=== PATIENT | female | born 1960 | race Caucasian/White ===

== ENCOUNTER 2022-02-07 07:55 | Inpatient (IN) | payer MEDICARE, OTHER ==
[2022-02-07] MEDS ORDERED: Prochlorperazine 5 MG Tab PO PRN (11:12)
[2022-02-07] MEDS ORDERED: Ondansetron 4 MG Tab.DIS PO PRN (11:12)
[2022-02-07] MEDS ORDERED: Fluticasone NASAL Spray 16 GM Bottle NASBOTH PRN (11:12)
[2022-02-07] MEDS ORDERED: Albuterol 8 GM Inhaler INH PRN (11:12)
[2022-02-07] MEDS ORDERED: Cyanocobalamin (Vitamin B12) 1,000 MCG/ML SDV IM SCH (11:15)
[2022-02-07] MEDS: Metoclopramide 10 MG Tab PO SCH ×2 (13:36→16:57)
[2022-02-07] MEDS ORDERED: GABAPENTIN 250 MG/5 ML PO SCH (14:00)
[2022-02-07] MEDS: oxyCODONE 5 MG Tab PO PRN ×2 (15:07→20:12)
[2022-02-07] MEDS ORDERED: IPRATROPIUM NASBOTH PRN (17:14)
[2022-02-07] MEDS ORDERED: Albuterol 0.083% 2.5 MG/3 ML Neb Soln INH PRN (17:21)
[2022-02-07] MEDS ORDERED: Albuterol/Ipratropium 3.0-0.5 MG/3 ML Neb Soln INH PRN (17:22)
[2022-02-07] MEDS: Pantoprazole 20 MG Tab, Delayed Release PO SCH (18:14)
[2022-02-07] MEDS: Acetaminophen 325 MG Tab PO PRN (19:23)
[2022-02-07] MEDS ORDERED: Potassium Chloride 10 MEQ Tab.ER PO SCH (21:00)
[2022-02-07] MEDS: Calcium Carbonate 500 MG Tab.Chew PO SCH (22:03)
[2022-02-07] MEDS: Amitriptyline 25 MG Tab PO SCH (22:03)
[2022-02-07] MEDS: Carvedilol 6.25 MG Tab PO SCH (22:05)
[2022-02-07] MEDS: Potassium Chloride 10 MEQ Tab.ER PO SCH (22:05)
[2022-02-07] MEDS: Formoterol/Mometasone 200-5 MCG 8.8 GM Inhaler IH SCH (22:06)
[2022-02-07] MEDS: GABAPENTIN 250 MG/5 ML PO SCH (22:07)
[2022-02-08] MEDS: oxyCODONE 5 MG Tab PO PRN ×5 (00:11→22:22)
[2022-02-08] MEDS: Pantoprazole 20 MG Tab, Delayed Release PO SCH ×3 (05:59→17:13)
[2022-02-08] MEDS ORDERED: Pantoprazole 40 MG Tab.CR PO SCH (07:30)
[2022-02-08] MEDS: Calcium Carbonate 500 MG Tab.Chew PO SCH (08:37)
[2022-02-08] MEDS: GABAPENTIN 250 MG/5 ML PO SCH ×2 (08:51→22:14)
[2022-02-08] MEDS: Formoterol/Mometasone 200-5 MCG 8.8 GM Inhaler IH SCH ×2 (08:51→22:25)
[2022-02-08] MEDS: Potassium Chloride 10 MEQ Tab.ER PO SCH ×2 (08:52→22:16)
[2022-02-08] MEDS: Carvedilol 6.25 MG Tab PO SCH ×2 (08:52→22:14)
[2022-02-08] MEDS: Polyethylene Glycol 3350 Powder 17 GM Packet PO SCH (08:53)
[2022-02-08] MEDS: Multivitamins with Minerals/Iron/Folic Acid/Lycopene Tab PO SCH (08:53)
[2022-02-08] MEDS ORDERED: BIOTIN 10 MG PO SCH (09:00)
[2022-02-08] MEDS ORDERED: Polyethylene Glycol 3350 Powder 17 GM Packet PO SCH (09:00)
[2022-02-08] MEDS ORDERED: Calcium Carbonate 600 MG Tab PO SCH (09:00)
[2022-02-08] MEDS: Acetaminophen 325 MG Tab PO PRN (16:15)
[2022-02-08] MEDS ORDERED: OMEPRAZOLE 40 MG PO SCH (17:30)
[2022-02-08] MEDS ORDERED: FLUTICASONE NASBOTH PRN (18:19)
[2022-02-08] MEDS: CALCIUM CARBONATE PO SCH (18:42)
[2022-02-08] MEDS: Amitriptyline 25 MG Tab PO SCH (22:16)
[2022-02-09] MEDS: oxyCODONE 5 MG Tab PO PRN ×4 (03:54→20:40)
[2022-02-09] MEDS: Pantoprazole 40 MG Tab.CR PO SCH ×2 (06:29→17:32)
[2022-02-09] MEDS: Formoterol/Mometasone 200-5 MCG 8.8 GM Inhaler IH SCH ×2 (08:25→20:40)
[2022-02-09] MEDS: Carvedilol 6.25 MG Tab PO SCH ×2 (08:26→20:39)
[2022-02-09] MEDS: Potassium Chloride 10 MEQ Tab.ER PO SCH ×2 (08:26→20:40)
[2022-02-09] MEDS: Polyethylene Glycol 3350 Powder 17 GM Packet PO SCH (08:26)
[2022-02-09] MEDS: Multivitamins with Minerals/Iron/Folic Acid/Lycopene Tab PO SCH (08:26)
[2022-02-09] MEDS: GABAPENTIN 250 MG/5 ML PO SCH ×2 (08:27→20:46)
[2022-02-09] MEDS: CALCIUM CARBONATE PO SCH ×2 (08:27→18:05)
[2022-02-09] MEDS ORDERED: CALCIUM CARBONATE PO SCH (12:00)
[2022-02-09] MEDS: Amitriptyline 25 MG Tab PO SCH (20:42)
[2022-02-10] MEDS: oxyCODONE 5 MG Tab PO PRN ×4 (02:28→21:28)
[2022-02-10] MEDS: Pantoprazole 40 MG Tab.CR PO SCH ×3 (06:10→17:09)
[2022-02-10] MEDS: CALCIUM CARBONATE PO SCH ×2 (09:39→18:13)
[2022-02-10] MEDS: GABAPENTIN 250 MG/5 ML PO SCH ×2 (09:39→20:18)
[2022-02-10] MEDS: Formoterol/Mometasone 200-5 MCG 8.8 GM Inhaler IH SCH ×2 (09:39→20:14)
[2022-02-10] MEDS: Potassium Chloride 10 MEQ Tab.ER PO SCH ×2 (09:40→20:13)
[2022-02-10] MEDS: Polyethylene Glycol 3350 Powder 17 GM Packet PO SCH (09:40)
[2022-02-10] MEDS: Multivitamins with Minerals/Iron/Folic Acid/Lycopene Tab PO SCH (09:40)
[2022-02-10] MEDS: Carvedilol 6.25 MG Tab PO SCH ×2 (09:44→20:35)
[2022-02-10] MEDS: Acetaminophen 500 MG Tab PO SCH ×3 (10:12→20:35)
[2022-02-10] MEDS ORDERED: oxyCODONE 5 MG Tab PO PRN (19:58)
[2022-02-10] MEDS: Amitriptyline 25 MG Tab PO SCH (20:14)
[2022-02-11] MEDS: Melatonin 3 MG Tab PO PRN ×2 (00:44→23:24)
[2022-02-11] MEDS: Pantoprazole 40 MG Tab.CR PO SCH ×3 (05:16→17:50)
[2022-02-11] MEDS: oxyCODONE 5 MG Tab PO PRN ×5 (05:16→23:25)
[2022-02-11] MEDS: Potassium Chloride 10 MEQ Tab.ER PO SCH ×2 (09:35→22:00)
[2022-02-11] MEDS: Acetaminophen 500 MG Tab PO SCH ×3 (09:36→21:58)
[2022-02-11] MEDS: Multivitamins with Minerals/Iron/Folic Acid/Lycopene Tab PO SCH (09:36)
[2022-02-11] MEDS: Formoterol/Mometasone 200-5 MCG 8.8 GM Inhaler IH SCH ×2 (09:45→22:01)
[2022-02-11] MEDS: Ergocalciferol (Vitamin D2) 1.25 MG Cap PO SCH (09:47)
[2022-02-11] MEDS: GABAPENTIN 250 MG/5 ML PO SCH ×2 (10:04→22:01)
[2022-02-11] MEDS: CALCIUM CARBONATE PO SCH ×2 (10:05→19:24)
[2022-02-11] MEDS: Carvedilol 6.25 MG Tab PO SCH ×2 (10:07→21:57)
[2022-02-11] MEDS: Polyethylene Glycol 3350 Powder 17 GM Packet PO SCH (18:51)
[2022-02-11] MEDS: Amitriptyline 25 MG Tab PO SCH (21:59)
[2022-02-12] MEDS: oxyCODONE 5 MG Tab PO PRN ×5 (03:58→23:06)
[2022-02-12] MEDS: Pantoprazole 40 MG Tab.CR PO SCH ×2 (07:40→19:10)
[2022-02-12] MEDS: Polyethylene Glycol 3350 Powder 17 GM Packet PO SCH (08:08)
[2022-02-12] MEDS: Potassium Chloride 10 MEQ Tab.ER PO SCH ×2 (08:08→21:56)
[2022-02-12] MEDS: Acetaminophen 500 MG Tab PO SCH ×3 (08:08→21:49)
[2022-02-12] MEDS: Multivitamins with Minerals/Iron/Folic Acid/Lycopene Tab PO SCH (08:08)
[2022-02-12] MEDS: GABAPENTIN 250 MG/5 ML PO SCH ×2 (08:11→21:56)
[2022-02-12] MEDS: CALCIUM CARBONATE PO SCH ×2 (08:14→19:11)
[2022-02-12] MEDS: Formoterol/Mometasone 200-5 MCG 8.8 GM Inhaler IH SCH ×2 (08:16→21:56)
[2022-02-12] MEDS: Carvedilol 6.25 MG Tab PO SCH ×2 (09:30→22:16)
[2022-02-12] MEDS: Amitriptyline 25 MG Tab PO SCH (21:50)
[2022-02-12] MEDS: Melatonin 3 MG Tab PO PRN (23:05)
[2022-02-13] MEDS: oxyCODONE 5 MG Tab PO PRN ×4 (06:09→22:24)
[2022-02-13] MEDS: Pantoprazole 40 MG Tab.CR PO SCH ×3 (06:09→17:04)
[2022-02-13] MEDS: Formoterol/Mometasone 200-5 MCG 8.8 GM Inhaler IH SCH ×2 (08:32→22:20)
[2022-02-13] MEDS: Acetaminophen 500 MG Tab PO SCH ×3 (08:33→22:22)
[2022-02-13] MEDS: Multivitamins with Minerals/Iron/Folic Acid/Lycopene Tab PO SCH (08:33)
[2022-02-13] MEDS: Carvedilol 6.25 MG Tab PO SCH ×2 (08:34→22:23)
[2022-02-13] MEDS: GABAPENTIN 250 MG/5 ML PO SCH ×2 (08:37→22:26)
[2022-02-13] MEDS: CALCIUM CARBONATE PO SCH ×2 (08:37→22:25)
[2022-02-13] MEDS: Polyethylene Glycol 3350 Powder 17 GM Packet PO SCH (08:44)
[2022-02-13] MEDS: Potassium Chloride 10 MEQ Tab.ER PO SCH ×2 (08:51→22:21)
[2022-02-13] MEDS: Amitriptyline 25 MG Tab PO SCH (22:21)
[2022-02-13] MEDS: Melatonin 3 MG Tab PO PRN (22:24)
[2022-02-14] MEDS: oxyCODONE 5 MG Tab PO PRN ×5 (02:40→21:58)
[2022-02-14] MEDS: Pantoprazole 40 MG Tab.CR PO SCH ×2 (06:37→17:24)
[2022-02-14] MEDS: GABAPENTIN 250 MG/5 ML PO SCH ×2 (08:47→20:03)
[2022-02-14] MEDS: Formoterol/Mometasone 200-5 MCG 8.8 GM Inhaler IH SCH ×2 (08:47→20:03)
[2022-02-14] MEDS: CALCIUM CARBONATE PO SCH ×2 (08:47→18:02)
[2022-02-14] MEDS: Acetaminophen 500 MG Tab PO SCH ×3 (08:48→20:12)
[2022-02-14] MEDS: Polyethylene Glycol 3350 Powder 17 GM Packet PO SCH (08:48)
[2022-02-14] MEDS: Multivitamins with Minerals/Iron/Folic Acid/Lycopene Tab PO SCH (08:48)
[2022-02-14] MEDS: Potassium Chloride 10 MEQ Tab.ER PO SCH ×2 (08:48→20:03)
[2022-02-14] MEDS: Carvedilol 6.25 MG Tab PO SCH (08:56)
[2022-02-14 12:02] LABS: ANION GAP 9.8 mmol/L (5-15)
[2022-02-14] MEDS: Amitriptyline 25 MG Tab PO SCH (20:01)
[2022-02-14] MEDS: Melatonin 3 MG Tab PO PRN (20:01)
[2022-02-15] MEDS: oxyCODONE 5 MG Tab PO PRN ×5 (02:38→22:00)
[2022-02-15] MEDS: Pantoprazole 40 MG Tab.CR PO SCH ×2 (06:36→17:27)
[2022-02-15] MEDS: Multivitamins with Minerals/Iron/Folic Acid/Lycopene Tab PO SCH (09:21)
[2022-02-15] MEDS: Formoterol/Mometasone 200-5 MCG 8.8 GM Inhaler IH SCH ×2 (09:22→20:41)
[2022-02-15] MEDS: Hydrochlorothiazide 12.5 MG Cap PO SCH (09:23)
[2022-02-15] MEDS: Potassium Chloride 10 MEQ Tab.ER PO SCH ×2 (09:23→20:40)
[2022-02-15] MEDS: Acetaminophen 500 MG Tab PO SCH ×3 (09:24→20:40)
[2022-02-15] MEDS: Polyethylene Glycol 3350 Powder 17 GM Packet PO SCH (09:27)
[2022-02-15] MEDS: CALCIUM CARBONATE PO SCH ×2 (09:27→18:09)
[2022-02-15] MEDS: GABAPENTIN 250 MG/5 ML PO SCH ×2 (09:35→20:41)
[2022-02-15] MEDS: Melatonin 3 MG Tab PO PRN (20:40)
[2022-02-15] MEDS: Amitriptyline 25 MG Tab PO SCH (20:40)
[2022-02-16] MEDS: oxyCODONE 5 MG Tab PO PRN ×5 (02:54→21:44)
[2022-02-16] MEDS: Pantoprazole 40 MG Tab.CR PO SCH ×2 (06:44→17:37)
[2022-02-16] MEDS: Formoterol/Mometasone 200-5 MCG 8.8 GM Inhaler IH SCH ×2 (08:07→21:26)
[2022-02-16] MEDS: Polyethylene Glycol 3350 Powder 17 GM Packet PO SCH (08:08)
[2022-02-16] MEDS: CALCIUM CARBONATE PO SCH ×2 (08:08→18:13)
[2022-02-16] MEDS: Hydrochlorothiazide 12.5 MG Cap PO SCH (08:08)
[2022-02-16] MEDS: Potassium Chloride 10 MEQ Tab.ER PO SCH ×2 (08:09→21:25)
[2022-02-16] MEDS: Acetaminophen 500 MG Tab PO SCH ×3 (08:09→21:24)
[2022-02-16] MEDS: Multivitamins with Minerals/Iron/Folic Acid/Lycopene Tab PO SCH (08:09)
[2022-02-16] MEDS: GABAPENTIN 250 MG/5 ML PO SCH ×2 (09:09→21:25)
[2022-02-16] MEDS: Amitriptyline 25 MG Tab PO SCH (21:24)
[2022-02-16] MEDS: Melatonin 3 MG Tab PO PRN (21:25)
[2022-02-17] MEDS: oxyCODONE 5 MG Tab PO PRN ×5 (02:34→22:10)
[2022-02-17] MEDS: Pantoprazole 40 MG Tab.CR PO SCH ×3 (06:23→17:16)
[2022-02-17] MEDS: GABAPENTIN 250 MG/5 ML PO SCH ×2 (08:50→22:12)
[2022-02-17] MEDS: Polyethylene Glycol 3350 Powder 17 GM Packet PO SCH (08:55)
[2022-02-17] MEDS: Multivitamins with Minerals/Iron/Folic Acid/Lycopene Tab PO SCH (08:56)
[2022-02-17] MEDS: Acetaminophen 500 MG Tab PO SCH ×3 (08:56→22:10)
[2022-02-17] MEDS: Hydrochlorothiazide 12.5 MG Cap PO SCH (08:56)
[2022-02-17] MEDS: Formoterol/Mometasone 200-5 MCG 8.8 GM Inhaler IH SCH ×2 (08:56→22:13)
[2022-02-17] MEDS: Potassium Chloride 10 MEQ Tab.ER PO SCH ×2 (08:56→22:09)
[2022-02-17] MEDS: CALCIUM CARBONATE PO SCH ×2 (08:58→18:18)
[2022-02-17] MEDS: Melatonin 3 MG Tab PO PRN (22:09)
[2022-02-17] MEDS: Amitriptyline 25 MG Tab PO SCH (22:10)
[2022-02-18] MEDS: oxyCODONE 5 MG Tab PO PRN ×2 (02:12→06:08)
[2022-02-18] MEDS: Pantoprazole 40 MG Tab.CR PO SCH ×2 (06:05→06:30)
[2022-02-18 08:24] LABS: ANION GAP 9.5 mmol/L (5-15)
[2022-02-18] MEDS: Polyethylene Glycol 3350 Powder 17 GM Packet PO SCH (08:24)
[2022-02-18] MEDS: GABAPENTIN 250 MG/5 ML PO SCH (08:24)
[2022-02-18] MEDS: Formoterol/Mometasone 200-5 MCG 8.8 GM Inhaler IH SCH (08:24)
[2022-02-18] MEDS: CALCIUM CARBONATE PO SCH (08:24)
[2022-02-18] MEDS: Potassium Chloride 10 MEQ Tab.ER PO SCH (08:28)
[2022-02-18] MEDS: Hydrochlorothiazide 12.5 MG Cap PO SCH (08:29)
[2022-02-18] MEDS: Multivitamins with Minerals/Iron/Folic Acid/Lycopene Tab PO SCH (08:29)
[2022-02-18] MEDS: Acetaminophen 500 MG Tab PO SCH (08:29)
[2022-02-18] MEDS: Ergocalciferol (Vitamin D2) 1.25 MG Cap PO SCH (09:22)
== END 2022-02-18 13:10 | disposition home or self-care (01) | DRG 948 ==
LOC: KA.MS 09:36
PROVIDERS: ADMIT Nurse Practitioner Family; ATTEND Family Medicine
DX: R53.81 Other malaise (principal); I82.409 Acute embolism and thrombosis of unspecified deep veins of unspecified lower extremity; E46 Unspecified protein-calorie malnutrition; Z68.41 Body mass index [BMI] 40.0-44.9, adult; M40.35 Flatback syndrome, thoracolumbar region; K59.09 Other constipation; Z20.822 Contact with and (suspected) exposure to COVID-19; E66.9 Obesity, unspecified; M54.9 Dorsalgia, unspecified; K21.9 Gastro-esophageal reflux disease without esophagitis; E53.8 Deficiency of other specified B group vitamins; G89.29 Other chronic pain; N32.81 Overactive bladder; K29.50 Unspecified chronic gastritis without bleeding; G62.9 Polyneuropathy, unspecified; G47.00 Insomnia, unspecified; J31.0 Chronic rhinitis; M85.80 Other specified disorders of bone density and structure, unspecified site; E87.6 Hypokalemia; D50.9 Iron deficiency anemia, unspecified; K59.03 Drug induced constipation; T40.2X5A Adverse effect of other opioids, initial encounter; R29.6 Repeated falls; M54.2 Cervicalgia; J45.40 Moderate persistent asthma, uncomplicated; N95.2 Postmenopausal atrophic vaginitis; Z91.013 Allergy to seafood; Z88.8 Allergy status to other drugs, medicaments and biological substances; Z91.041 Radiographic dye allergy status; Z86.718 Personal history of other venous thrombosis and embolism; Z79.01 Long term (current) use of anticoagulants
CPT/HCPCS: 36415; 72070; 72100; 80053; 85025; 87070; 87075; 87205; 97110-GO; 97110-GP; 97116-GP; 97161-GP; 97530-GP; 97535-GO; A9270-GY; J1642; J1652; U0002

== ENCOUNTER 2022-03-04 18:30 | Emergency (ER) | payer MEDICARE, OTHER ==
[2022-03-04] MEDS ORDERED: Lidocaine 1% 50 ML MDV INJECT ONE (19:00)
[2022-03-04] MEDS ORDERED: Diphtheria,Pertussis(Acell),Tetanus Vaccine 0.5 ML Syringe IM ONE (19:02)
[2022-03-04 19:12] VITALS: BP 122/63; PULSE 80
[2022-03-04] MEDS ORDERED: Bacitracin/Neomycin/Polymyxin B Oint 0.9 GM U/D Packet TOP ONE (19:20)
[2022-03-04] MEDS ORDERED: Bacitracin/Neomycin/Polymyxin B Oint 0.9 GM U/D Packet ONE (19:22)
== END 2022-03-04 19:40 | disposition home or self-care (01) ==
LOC: KA.ED 18:30
DX: S81.812A Laceration without foreign body, left lower leg, initial encounter (principal); I10 Essential (primary) hypertension; M19.90 Unspecified osteoarthritis, unspecified site; E66.9 Obesity, unspecified; Z68.30 Body mass index [BMI] 30.0-30.9, adult; Z91.041 Radiographic dye allergy status; Z91.011 Allergy to milk products; Z91.013 Allergy to seafood; Z79.899 Other long term (current) drug therapy; Z23 Encounter for immunization; W22.09XA Striking against other stationary object, initial encounter
CPT/HCPCS: 12002; 90471; 90715; 99282-25; 99283; J2001